=== PATIENT | female | born 1950 | race Caucasian/White ===

== ENCOUNTER → 2016-05-10 | Outpatient (CLI) | payer OTHER, MEDICARE ==
[2016-05-10 15:32] LABS: BASOPHILS # (AUTO) 0.05 10*3/UL; BASOPHILS % (AUTO) 0.6 % (0-1); EOSINOPHILS # (AUTO) 0.19 10*3/UL; EOSINOPHILS % (AUTO) 2.1 % (0-8); HEMATOCRIT 31.7 % (37.0-47.0); LYMPHOCYTES # (AUTO) 2.31 10*3/uL; MEAN CORPUSCULAR HEMOGLOBIN 29.6 PG (27-31); MEAN CORPUSCULAR HGB CONC 31.5 g/dL (33-37); MEAN CORPUSCULAR VOLUME 93.8 FL (81-99); MEAN PLATELET VOLUME 8.9 FL (7.4-12.2); MONOCYTES # (AUTO) 1.11 10*3/UL (0.3-0.8); MONOCYTES % (AUTO) 12.5 % (5-15); NEUTROPHILS # (AUTO) 5.15 10*3/UL; RED BLOOD COUNT 3.38 10^6/uL (4.20-5.40)
[2016-05-10 15:36] LABS: BLOOD UREA NITROGEN 18 mg/dL (7-22); CALCIUM 9.4 mg/dL (8.7-10.7); EST GLOMERULAR FILTRATION > 60 (>60 ml/min/1.73m(2))
[2016-05-10 16:05] LABS: PLATELET MORPHOLOGY COMMENT NORMAL MORPHOLOGY (NORM); RBC MORPHOLOGY COMMENT NORMAL MORPHOLOGY (NORM); WBC MORPHOLOGY COMMENT NORMAL MORPHOLOGY (NORM)
== END ==
LOC: LAB 14:55
PROVIDERS: ATTEND Physician Assistant
DX: J18.9 Pneumonia, unspecified organism (principal)
CPT/HCPCS: 36415; 71020; 80053; 85025; 87040

== ENCOUNTER → 2016-05-10 | Outpatient (CLI) | payer OTHER, MEDICARE ==
--- NOTE | 2016-05-10 14:42 | DI ---
XR CXR 2VW PA/LAT,05/10/2016 2:05 PM: Clinical History: Cough Previous Exam: November 11, 2015 Findings: PA and lateral views of the chest are obtained, and demonstrate a new infiltrate within the right low er lobe posteriorly. The cardiomediastinum and bony thorax are unremarkable. Impression: Right lower lobe pneumonia.
== END ==
LOC: MOB RAD 14:09
PROVIDERS: ATTEND Physician Assistant
DX: R05 Cough (principal); J18.9 Pneumonia, unspecified organism
CPT/HCPCS: 71020

== ENCOUNTER → 2016-05-12 | Outpatient (CLI) | payer OTHER, MEDICARE | LOC: MMPC 09:00 | PROVIDERS: ATTEND Nurse Practitioner Family | DX: J18.1 Lobar pneumonia, unspecified organism (principal) | CPT/HCPCS: 99213; G0463 ==

== ENCOUNTER → 2016-05-19 | Outpatient (CLI) | payer OTHER, MEDICARE | LOC: MMPC 09:00 | PROVIDERS: ATTEND Nurse Practitioner Family | DX: J18.8 Other pneumonia, unspecified organism (principal) | CPT/HCPCS: 99213; G0463 ==